=== PATIENT | male | born 1950 | race Caucasian/White ===

== ENCOUNTER → 2016-12-13 | Outpatient (CLI) | payer BC, MEDICARE ==
[2016-11-21 15:00] VITALS: BP 100/62
[~2016-12-13] MED LIST: AMOX1TAB61 PO; ASPI-630 PO; ATOR40TA PO; DOCU-109 PO; HYDR-2758 PO; MULT1TAB52 PO; OMEG1CAP27 PO
== END | disposition home or self-care (01) ==
LOC: PMGWOUND 11:26
PROVIDERS: ATTEND Emergency Medicine Undersea and Hyperbaric Medicine
DX: E11.621 Type 2 diabetes mellitus with foot ulcer (principal); L97.511 Non-pressure chronic ulcer of other part of right foot limited to breakdown of skin; L89.894 Pressure ulcer of other site, stage 4; I10 Essential (primary) hypertension; K21.9 Gastro-esophageal reflux disease without esophagitis; M86.68 Other chronic osteomyelitis, other site; E78.00 Pure hypercholesterolemia, unspecified; E11.42 Type 2 diabetes mellitus with diabetic polyneuropathy; Z72.89 Other problems related to lifestyle
CPT/HCPCS: 97597

== ENCOUNTER → 2016-12-20 | Outpatient (CLI) | payer BC ==
[2016-11-21 15:00] VITALS: BP 100/62
== END | disposition home or self-care (01) ==
LOC: PMGWOUND 10:33
PROVIDERS: ATTEND Emergency Medicine Undersea and Hyperbaric Medicine
DX: E11.621 Type 2 diabetes mellitus with foot ulcer (principal); L97.511 Non-pressure chronic ulcer of other part of right foot limited to breakdown of skin; I10 Essential (primary) hypertension; K21.9 Gastro-esophageal reflux disease without esophagitis; E11.42 Type 2 diabetes mellitus with diabetic polyneuropathy; E11.69 Type 2 diabetes mellitus with other specified complication; M86.68 Other chronic osteomyelitis, other site; M86.8X7 Other osteomyelitis, ankle and foot; E78.5 Hyperlipidemia, unspecified; Z72.89 Other problems related to lifestyle
CPT/HCPCS: 11042

== ENCOUNTER → 2016-12-27 | Outpatient (CLI) | payer BC ==
[2016-11-21 15:00] VITALS: BP 100/62
== END | disposition home or self-care (01) ==
LOC: PMGWOUND 10:24
PROVIDERS: ATTEND Emergency Medicine Undersea and Hyperbaric Medicine
DX: E11.621 Type 2 diabetes mellitus with foot ulcer (principal); L97.511 Non-pressure chronic ulcer of other part of right foot limited to breakdown of skin; L89.894 Pressure ulcer of other site, stage 4; E11.69 Type 2 diabetes mellitus with other specified complication; M86.68 Other chronic osteomyelitis, other site; I10 Essential (primary) hypertension; K21.9 Gastro-esophageal reflux disease without esophagitis; E78.5 Hyperlipidemia, unspecified; E11.42 Type 2 diabetes mellitus with diabetic polyneuropathy; Z72.89 Other problems related to lifestyle
CPT/HCPCS: 99214

== ENCOUNTER → 2017-01-03 | Outpatient (CLI) | payer BC ==
[2016-11-21 15:00] VITALS: BP 100/62
== END | disposition home or self-care (01) ==
LOC: PMGWOUND 10:52
PROVIDERS: ATTEND Emergency Medicine Undersea and Hyperbaric Medicine
DX: E11.621 Type 2 diabetes mellitus with foot ulcer (principal); L97.511 Non-pressure chronic ulcer of other part of right foot limited to breakdown of skin; I10 Essential (primary) hypertension; K21.9 Gastro-esophageal reflux disease without esophagitis; E78.5 Hyperlipidemia, unspecified; E11.69 Type 2 diabetes mellitus with other specified complication; M86.8X7 Other osteomyelitis, ankle and foot; E11.42 Type 2 diabetes mellitus with diabetic polyneuropathy; E78.00 Pure hypercholesterolemia, unspecified; Z72.89 Other problems related to lifestyle
CPT/HCPCS: 99213

== ENCOUNTER 2018-11-10 07:20 | Emergency (ER) | payer BC ==
[~2018-11-10] VITALS: Ht 177.8 cm; Wt 75.3 kg
[~2018-11-10 07:20] MED LIST changes: -HYDR-2758 PO; +HYDR-2761 PO
[2018-11-10 07:30] VITALS: BP 139/69
[2018-11-10] MEDS ORDERED: NAPR-683 PO (07:52)
[2018-11-10] MEDS ORDERED: CIPR250T30 PO (07:52)
--- NOTE | 2018-11-10 07:52 | PHYS DOC ---
Past Medical History Past Medical History: Diabetes-Type II, High Cholesterol Past Surgical History: Coronary Bypass Surgery, Other Additional Past Surgical Histo: valve replacement surgery Alcohol Use: Rarely Drug Use: None Adult General Chief Complaint Chief Complaint: epididymitis HPI HPI Patient is a 68 year old male who presents with complaining of epididymitis. Patient states he has had episodes of epididymitis for the last 10 years and recently seen by his nurse practitioner and treated with Levaquin and Naprosyn with improvement of his condition. Patient states he left heavy weight 3 weeks ago and his pain increased and treated with Naprosyn with improvement of his pain. Patient states his dog jumped on his abdomen and genital area and he has pain again. Patient denies fever and chills, abdominal pain, penile discharge, urinary symptom, nausea and vomiting. Review of Systems Review of Systems Constitutional: Denies fever or chills [] Eyes: Denies change in visual acuity, redness, or eye pain [] HENT: Denies nasal congestion or sore throat [] Respiratory: Denies cough or shortness of breath [] Cardiovascular: No additional information not addressed in HPI [] GI: Denies abdominal pain, nausea, vomiting, bloody stools or diarrhea [] : Denies dysuria or hematuria [] Musculoskeletal: Denies back pain or joint pain [] Integument: Denies rash or skin lesions [] Neurologic: Denies headache, focal weakness or sensory changes [] Endocrine: Denies polyuria or polydipsia [] All other systems were reviewed and found to be within normal limits, except as documented in this note. Allergies Allergies Allergies Coded Allergies Type Severity Reaction Last Updated Verified No Known Drug Allergies 11/14/16 No Physical Exam Physical Exam Constitutional: Well developed, well nourished, no acute distress, non-toxic appearance. [] HENT: Normocephalic, atraumatic Eyes: PERRLA, EOMI, conjunctiva normal, no discharge. [] Neck: Normal range of motion, no tenderness, supple, no stridor. [] Cardiovascular:Heart rate regular rhythm, no murmur [] Lungs & Thorax: Bilateral breath sounds clear to auscultation [] Abdomen: Bowel sounds normal, soft, no tenderness, no masses, no pulsatile masses. Genital exam in present of search marketing analyst showed normal penis and testicle with mild tenderness in the superior pole of left testicle. Skin: Warm, dry, no erythema, no rash. [] Back: No tenderness, no CVA tenderness. [] Extremities: No tenderness, no cyanosis, no clubbing, ROM intact, no edema. [] Neurologic: Alert and oriented X 3, normal motor function, normal sensory function, no focal deficits noted. [] Psychologic: Affect normal, judgement normal, mood normal. [] Current Patient Data Vital Signs Vital Signs Date Time Temp Pulse Resp B/P (MAP) Pulse Ox O2 Delivery O2 Flow Rate FiO2 11/10/18 07:30 97.6 63 20 139/69 (92) 99 Room Air 97.6 EKG EKG [] Radiology/Procedures Radiology/Procedures [] Course & Med Decision Making Course & Med Decision Making I've spoken with the patient and/or caregivers. I've explained the patient's condition, diagnosis and treatment plan based on information available to me at this time. I've answered the patient's and/or caregivers questions and addressed any concerns. The patient and/or caregivers have a good understanding the patient's diagnosis, condition and treatment plan as can be expected at this point. Vital signs have been stabilized. The patient's condition is stable for discharge from the emergency department. The patient will pursue further outpatient evaluation with her primary care provider or other designated consulting physician as outlined in the discharge instructions. Patient and/or caregivers are agreeable to this plan of care and follow-up instructions have been explained in detail. The patient and/or caregivers have received these instructions in written format and expressed understanding of these discharge instructions. The patient and her caregivers are aware that if any significant change in condition or worsening of symptoms should prompt him to immediately return to this of the closest emergency department. If an emergent department is not readily available I would encourage him to call 911. Brittany Disclaimer Dragon Disclaimer This electronic medical record was generated, in whole or in part, using a voice recognition dictation system. Departure Departure Impression: Primary Impression: Epididymitis, left Disposition: HOME, SELF-CARE (at 0750) Condition: STABLE Referrals: RACHELL DAVILA Jr, MD (PCP) Patient Instructions: Epididymitis Additional Instructions: Drink plenty of liquids Follow-up with your primary care physician in 3-5 days Return to ER if not getting better Scripts Naproxen (NAPROSYN) 500 Mg Tablet 1 TAB PO BID for pain, #20 TAB Prov: KLAUS MARTE MD 11/10/18 Ciprofloxacin Hcl (CIPRO) 250 Mg Tablet 1 TAB PO BID for infection, #14 TAB Prov: KLAUS MARTE MD 11/10/18 KLAUS MARTE MD Nov 10, 2018 07:52
== END 2018-11-10 08:19 | disposition home or self-care (01) ==
LOC: ER 07:20
DX: N45.1 Epididymitis (principal); E11.9 Type 2 diabetes mellitus without complications; E78.00 Pure hypercholesterolemia, unspecified; Z95.1 Presence of aortocoronary bypass graft
CPT/HCPCS: 99283